=== PATIENT | female | born 1970 | race Caucasian/White ===

== ENCOUNTER → 2023-07-14 | Outpatient (CLI) | payer OTHER, SELFPAY ==
--- NOTE | 2023-07-14 14:50 | RAD_ITS ---
INDICATION: PAIN EXAMINATION/TECHNIQUE: X-RAY - XR Spine Cervical 4 or 5 Views COMPARISON: No comparison. FINDINGS: 5 views of the cervical spine. BONES: Cervical straightening. Normal anatomic alignment without evidence of fracture or subluxation. No concerning bony lesion or abnormal sclerosis to suggest lesion. DISCS/JOINTS: No significant degenerative change. There appears to be no more than mild bilateral caudal C5-C6 neuroforaminal narrowing. No significant neuroforaminal narrowing is otherwise appreciated. SOFT TISSUES: Unremarkable. RAD/Cerv Spine 4 or 5 Views IMPRESSION: There appears to be no more than mild bilateral caudal C5-C6 neuroforaminal narrowing. No significant neuroforaminal narrowing is otherwise appreciated. If there is persistent clinical concern for spine fracture and this is a trauma patient, recommend dedicated cervical spine CT. Electronically Signed: Royal Menard MD at 23:28 EDT ,
== END | disposition home or self-care (01) ==
PROVIDERS: PCP Internal Medicine; Referring Provider Anesthesiology Pain Medicine; Visit Provider Anesthesiology Pain Medicine
DX: M47.12 Other spondylosis with myelopathy, cervical region (principal)
CPT/HCPCS: 72050